=== PATIENT | male | born 1985 | race American Indian/Alaskan Native ===

== ENCOUNTER 2017-08-09 22:41 | Emergency (ER) | payer SELFPAY ==
[2017-08-09] MEDS ORDERED: Lidocaine 1% with EPINEPHrine 1:100,000 50 ML MDV INFILT ONE (23:05)
[2017-08-09] MEDS ORDERED: Acetaminophen/HYDROcodone 325-5 MG Tab PO ONE (23:20)
[2017-08-09] MEDS ORDERED: Bacitracin Oint 1 GM U/D Packet TOP ONE (23:20)
--- NOTE | 2017-08-09 23:26 | EDM.PDOC ---
ED HPI GENERAL MEDICAL PROBLEM - General Chief Complaint: Laceration Stated Complaint: FELL CUT HEAD Time Seen by Provider: 08/09/17 23:05 Source of Information: Reports: Patient, Family History Limitations: Reports: No Limitations - History of Present Illness INITIAL COMMENTS - FREE TEXT/NARRATIVE: Jonh presents tonight with complaints of pain and laceration to posterior scalp. He reports he fell and struck a piece of metal with the back of his head. He denies LOC, Nausea, vomiting or change in vision. Quality: Reports: Ache, Throbbing Severity: Moderate Improves with: Reports: None Worsens with: Reports: Movement laceration Pain Score (Numeric/FACES): 6 - Related Data Allergies Allergy/AdvReac Type Severity Reaction Status Date / Time No Known Allergies Allergy Verified 08/09/17 22:57 Home Meds: Home Meds NK [No Known Home Meds] 08/09/17 [History] Past Medical History Psychiatric History: Reports: Depression Social & Family History - Tobacco Use Smoking Status *Q: Current Every Day Smoker Years of Tobacco use: 20 Packs/Tins Daily: 1.5 - Caffeine Use Caffeine Use: Reports: Soda - Recreational Drug Use Recreational Drug Use: No ED ROS GENERAL - Review of Systems Review Of Systems: See Below Constitutional: Denies: Fever, Chills, Weakness HEENT: Denies: Dental Pain, Ear Pain, Nosebleed, Throat Pain, Vertigo, Vision Change Respiratory: Reports: No Symptoms Cardiovascular: Reports: No Symptoms GI/Abdominal: Reports: No Symptoms Musculoskeletal: Denies: Neck Pain, Shoulder Pain, Back Pain Skin: Reports: Other (Laceration to posterior scalp) Neurological: Reports: Headache. Denies: Confusion, Numbness, Paresthesia, Tingling, Difficulty Walking, Weakness, Gait Disturbance Psychiatric: Reports: No Symptoms Hematologic/Lymphatic: Reports: No Symptoms Immunologic: Reports: No Symptoms ED EXAM, SKIN/RASH Exam: See Below Text/Narrative:: Jonh is an alert and oriented 32 year old male who fell developing a 4cm laceration to posterior head/parietal area. Bleeding controlled, no LOC, no change in vision, no battles sign, no vomiting. Exam Limited By: No Limitations General Appearance: Alert, WD/WN, Mild Distress Eye Exam: Bilateral Eye: Normal Inspection, PERRL Ears: Normal External Exam, Normal Canal, Hearing Grossly Normal, Normal TMs Nose: Normal Inspection, Normal Mucosa, No Blood Throat/Mouth: Normal Inspection, Normal Oropharynx, Normal Voice, No Airway Compromise Head: Other (constusion, edema at sight of laceration. ) Neck: Normal Inspection, Supple, Non-Tender, Full Range of Motion. No: Lymphadenopathy (R), Lymphadenopathy (L) Respiratory/Chest: No Respiratory Distress, Normal Breath Sounds, No Accessory Muscle Use, Chest Non-Tender Cardiovascular: Normal Peripheral Pulses, Regular Rate, Rhythm, No Edema, No Murmur Peripheral Pulses: 2+: Radial (L), Radial (R), Dorsalis Pedis (L), Dorsalis Pedis (R) Back Exam: Normal Inspection, Full Range of Motion. No: CVA Tenderness (R), CVA Tenderness (L) Extremities: Normal Inspection, Normal Range of Motion, Non-Tender, No Pedal Edema, Normal Capillary Refill Neurological: Alert, Oriented, CN II-XII Intact, Normal Cognition, Normal Gait, Normal Reflexes, No Motor/Sensory Deficits Psychiatric: Normal Affect, Normal Mood Skin: Warm, Dry, Other (Laceration as described above. ) Location, Skin: Head, Other (linear) Lymphatic: No Adenopathy ED SKIN PROCEDURES - Laceration/Wound Repair Posterior Head Lac/Wound length In cm: 4 Appearance: Subcutaneous Distal NVT: Neuro & Vascular Intact Anesthetic Type: Local Local Anesthesia - Lidocaine (Xylocaine): 1% with EPI Local Anesthetic Volume: 1cc Skin Prep: Chlorhexidine (Hibiciens) Exploration/Debridement/Repair: Wound Explored Closed with: Colleen, Other (Ball x 7) Sterile Dressing Applied: Other (antibiotic applied. Patient refused pressure dressing.) Tetanus Status Addressed: Other (Last in 2011) Course - Vital Signs Last Recorded V/S: Last Vital Signs Temp 36.0 C 08/09/17 23:02 Pulse 110 H 08/09/17 23:02 Resp 16 08/09/17 23:02 BP 127/67 08/09/17 23:02 Pulse Ox 94 L 08/09/17 23:02 - Orders/Labs/Meds Meds: Medications Discontinued Medications Generic Name Dose Route Start Last Admin Trade Name Freq PRN Reason Stop Dose Admin Hydrocodone Bitart/Acetaminophen 1 tab 08/09/17 23:20 08/09/17 23:24 [place] 325-5 Mg PO 08/09/17 23:21 1 tab ONETIME ONE Administration Bacitracin 1 dose 08/09/17 23:20 08/09/17 23:24 Bacitracin Oint 1 Gm TOP 08/09/17 23:21 1 dose ONETIME ONE Administration Lidocaine/Epinephrine 10 ml 08/09/17 23:05 08/09/17 23:24 Xylocaine 1% With Epinephrine 1:100,000 INFILT 08/09/17 23:06 10 ml ONETIME ONE Administration Departure - Departure Time of Disposition: 23:50 Disposition: Home, Self-Care 01 Condition: Good Clinical Impression: Laceration of scalp - Discharge Information Referrals: PCP,None [Primary Care Provider] - Forms: ED Department Discharge Additional Instructions: You have suffered a laceration to your scalp that was 4 cm in length and closed with 7 colleen. It would be best to keep the area dry for 24 hours. After 24 hours you may wash your hair as normal and pat dry. You can apply antibiotic ointment twice per day for 3 days. Report to your primary provider or return to the ER for staple removal in 10 days. Return for signs of head injury, infection or other concerns. You may take ibuprofen or acetaminophen for pain as needed. - Assessment/Plan Assessment:: Laceration to scalp Closed with colleen x 7 Plan: Laceration to your scalp that was 4 cm in length and closed with 7 colleen. It would be best to keep the area dry for 24 hours. After 24 hours may wash hair as normal and pat dry. He can apply antibiotic ointment twice per day for 3 days. Report to primary provider or return to the ER for staple removal in 10 days. Return for signs of head injury, infection or other concerns. Patient may take ibuprofen or acetaminophen for pain as needed.
== END 2017-08-09 23:59 | disposition home or self-care (01) ==
LOC: JP.ED 22:41
DX: S01.01XA Laceration without foreign body of scalp, initial encounter (principal); F17.210 Nicotine dependence, cigarettes, uncomplicated; W01.198A Fall on same level from slipping, tripping and stumbling with subsequent striking against other object, initial encounter
CPT/HCPCS: 12002; 99283; A9270